=== PATIENT | female | born 1980 | race Two or more races ===

== ENCOUNTER 2022-09-11 20:53 | Emergency (ER) | payer OTHER ==
[~2022-09-11] VITALS: Ht 149.9 cm; Wt 49.9 kg
[2022-09-11] MEDS ORDERED: DUI500 PO (23:08)
[2022-09-12] MEDS ORDERED: BUTALBIT-ACETA1 EACH PO (23:24)
== END 2022-09-11 23:26 | disposition home or self-care (01) ==
LOC: ER 20:53
DX: N39.0 Urinary tract infection, site not specified (principal); B96.29 Other Escherichia coli [E. coli] as the cause of diseases classified elsewhere

== ENCOUNTER 2022-09-12 17:42 | Emergency (ER) | payer OTHER ==
[~2022-09-12] VITALS: Ht 160 cm; Wt 49.9 kg
[~2022-09-12 17:42] MED LIST: DUI500 PO
[2022-09-12] MEDS ORDERED: BUTALBIT-ACETA1 EACH PO (23:24)
== END 2022-09-12 23:34 | disposition home or self-care (01) ==
LOC: ER 17:42
DX: N39.0 Urinary tract infection, site not specified (principal); R51.9 Headache, unspecified; M54.50 Low back pain, unspecified